=== PATIENT | female | born 1990 | race Caucasian/White ===

== ENCOUNTER 2022-05-06 09:45 | Outpatient (CLI) | payer BC, SELFPAY ==
[2022-05-06 12:00] LABS: Albumin* 4.4 g/dL (3.3-5.0); Chloride* 104 mmol/L (96-114); Potassium* 3.7 mmol/L (3.6-5.1); Sodium* 139 mmol/L (135-149)
[2022-05-06 12:02] LABS: Creatinine* 0.7 mg/dL (0.5-1.5); Estimated Glomerular Filt Rate 118 ml/min
[2022-05-06 12:03] LABS: Alanine Aminotransferase* 14 U/L (4-35); Alkaline Phosphatase* 70 U/L (40-150); Aspartate Amino Transferase* 21 U/L (12-35); Bilirubin Total* 0.5 mg/dL (0.1-1.5); Blood Urea Nitrogen* 14 mg/dL (5-24); Carbon Dioxide* 27 mmol/L (20-32); Glucose* 98 mg/dL (60-115)
[2022-05-06 12:04] LABS: Calcium* 8.9 mg/dL (8.4-10.6)
== END 2022-05-06 09:46 | disposition home or self-care (01) ==
LOC: NFLDREF 09:46
PROVIDERS: PCP Family Medicine; Visit Provider Family Medicine
DX: Z00.00 Encounter for general adult medical examination without abnormal findings (principal); R53.83 Other fatigue
CPT/HCPCS: 80053

== ENCOUNTER 2023-07-01 08:55 | Outpatient (CLI) | payer BC, SELFPAY | END 2023-07-01 08:56 | disposition home or self-care (01) | LOC: NFLDREF 07-05 10:31 | PROVIDERS: PCP Family Medicine; Referring Provider Family Medicine; Visit Provider Family Medicine | DX: Z01.419 Encounter for gynecological examination (general) (routine) without abnormal findings (principal); R53.83 Other fatigue; Z13.6 Encounter for screening for cardiovascular disorders | CPT/HCPCS: 80053; 80061 ==